=== PATIENT | male | born 1940 | race Caucasian/White ===

== ENCOUNTER 2019-12-09 23:11 | Inpatient (IN) ==
[2019-12-10 00:20] LABS: Basophils % 0.2 %; Hematocrit 33.6 % (37.5-50.1); Hemoglobin 11.6 g/dL (12.9-16.9); Immature Granulocytes % 0.5 % (0-4); Lymphocytes # 0.5 K/mcL (0.6-4.6); Lymphocytes % 8.7 %; Mean Corpuscular HGB Conc 34.5 g/dL (31.6-35.5); Mean Corpuscular Hemoglobin 31.1 pg (28.0-33.3); Mean Corpuscular Volume 90.1 fL (83.0-100.0); Mean Platelet Volume 10.2 fL (9.4-12.4); Monocytes # 0.3 K/mcL (0.0-1.3); Monocytes % 5.2 %; Neutrophils # 4.9 K/mcL (1.6-8.9); Platelet Count 143 K/mcL (140-400); Red Blood Count 3.73 M/mcL (4.19-5.50); Red Cell Distribution Width 11.9 % (11.5-14.5); Segmented Neutrophils % 85.4 %; White Blood Count 5.8 K/mcL (4.3-11.1)
[2019-12-10 00:39] LABS: BUN/Creatinine Ratio 23 (6-26); Blood Urea Nitrogen 19 mg/dL (8-23); Calcium 7.9 mg/dL (8.6-10.3); Carbon Dioxide 25 mEq/L (23-29); Chloride 103 mEq/L (98-107); Glucose 129 mg/dL (70-105); Osmolality,Calculated 286 (280-300); Potassium 3.4 mEq/L (3.5-5.1); Sodium 136 mEq/L (136-145); eGFR For African Americans > 60 (> 60); eGFR For Non-African Americans > 60 (> 60)
[2019-12-10 00:40] LABS: Troponin I 0.03 ng/mL (< 0.04)
[2019-12-10 01:22] LABS: Adenovirus Not Detected (Not Detect); Bordetella Pertussis Not Detected (Not Detect); Chlamydophila pneumoniae Not Detected (Not Detect); Coronavirus 229E Not Detected (Not Detect); Coronavirus HKU1 Not Detected (Not Detect); Coronavirus NL63 Not Detected (Not Detect); Coronavirus OC43 Not Detected (Not Detect); Human Metapneumovirus Not Detected (Not Detect); Human Rhinovirus/Enterovirus Not Detected (Not Detect); Influenza A Subtype 2009 H1 Not Detected (Not Detect); Influenza B Not Detected (Not Detect); Mycoplasma pneumoniae Not Detected (Not Detect); Parainfluenza Virus 1 Not Detected (Not Detect); Parainfluenza Virus 2 Not Detected (Not Detect); Parainfluenza Virus 3 Not Detected (Not Detect); Parainfluenza Virus 4 Not Detected (Not Detect); Respiratory Syncytial Virus Not Detected (Not Detect)
[2019-12-10 01:23] LABS: SARS-CoV-2 DETECTED (Not Detect)
[2019-12-10] MEDS ORDERED: Naloxone 0.4 MG/ML INJ IVP PRN (03:50)
[2019-12-10] MEDS ORDERED: *HR* Heparin 5,000 UNIT/ML VIAL SQ SCH (06:00)
[2019-12-10 06:25] LABS: Hematocrit 33.3 % (37.5-50.1); Hemoglobin 11.7 g/dL (12.9-16.9); Mean Corpuscular HGB Conc 35.1 g/dL (31.6-35.5); Mean Platelet Volume 10.1 fL (9.4-12.4); Platelet Count 143 K/mcL (140-400); Red Blood Count 3.66 M/mcL (4.19-5.50); Red Cell Distribution Width 11.9 % (11.5-14.5); White Blood Count 5.6 K/mcL (4.3-11.1)
[2019-12-10 06:39] LABS: Alanine Aminotransferase 13 Units/L (7-52); Albumin 3.2 g/dL (3.5-5.7); Albumin/Globulin Ratio 1.1 (1.1-2.2); Alkaline Phosphatase 46 Units/L (34-104); Aspartate Amino Transferase 31 Units/L (13-39); BUN/Creatinine Ratio 26 (6-26); Bilirubin,Total 0.7 mg/dL (0.3-1.0); Blood Urea Nitrogen 21 mg/dL (8-23); Calcium 8.2 mg/dL (8.6-10.3); Carbon Dioxide 27 mEq/L (23-29); Chloride 103 mEq/L (98-107); Glucose 120 mg/dL (70-105); Lactate Dehydrogenase 308 Units/L (140-271); Magnesium 1.7 mg/dL (1.6-2.6); Osmolality,Calculated 288 (280-300); Phosphorous 2.6 mg/dL (2.7-4.5); Potassium 3.3 mEq/L (3.5-5.1); Sodium 137 mEq/L (136-145); Total Protein 6.2 g/dL (6.4-8.9); eGFR For African Americans > 60 (> 60); eGFR For Non-African Americans > 60 (> 60)
[2019-12-10] MEDS: cefTRIAXone 1,000 MG in Water for inj. (sterile) 10 ML IVP SCH (08:50)
[2019-12-10] MEDS: Azithromycin 250 MG TABLET PO SCH (08:51)
[2019-12-10] MEDS: Furosemide 20 MG/2 ML VIAL IVP SCH (08:51)
[2019-12-10] MEDS ORDERED: Dexamethasone 4 MG/ML VIAL IVP SCH (09:00)
[2019-12-10] MEDS ORDERED: Ondansetron 4 MG/2 ML VIAL IVP PRN (10:30)
[2019-12-10] MEDS ORDERED: *HR* Enoxaparin 40 MG/0.4 ML SYRINGE SQ ONE (18:00)
[2019-12-10] MEDS: Dexamethasone 4 MG/ML VIAL IVP SCH (20:08)
[2019-12-10] MEDS: Acetaminophen 325 MG TABLET PO PRN (20:08)
[2019-12-10] MEDS ORDERED: 0.9 % Sodium Chloride 250 ML ONE (21:44)
[2019-12-11] MEDS: *HR* Enoxaparin 40 MG/0.4 ML SYRINGE SQ SCH (04:58)
[2019-12-11 06:35] LABS: INR 1.6; Prothrombin Time 18.5 Seconds (9.4-12.1)
[2019-12-11 06:45] LABS: BUN/Creatinine Ratio 30 (6-26); Blood Urea Nitrogen 27 mg/dL (8-23); Calcium 8.3 mg/dL (8.6-10.3); Carbon Dioxide 26 mEq/L (23-29); Chloride 100 mEq/L (98-107); Glucose 150 mg/dL (70-105); Lactate Dehydrogenase 326 Units/L (140-271); Magnesium 1.8 mg/dL (1.6-2.6); Osmolality,Calculated 290 (280-300); Potassium 3.5 mEq/L (3.5-5.1); Sodium 136 mEq/L (136-145); eGFR For African Americans > 60 (> 60); eGFR For Non-African Americans > 60 (> 60)
[2019-12-11 07:03] LABS: Ferritin 1233 ng/mL (20-250)
[2019-12-11 07:40] LABS: Hematocrit 36.2 % (37.5-50.1); Hemoglobin 12.3 g/dL (12.9-16.9); Mean Corpuscular Hemoglobin 30.8 pg (28.0-33.3); Mean Corpuscular Volume 90.7 fL (83.0-100.0); Mean Platelet Volume 10.3 fL (9.4-12.4); Platelet Count 190 K/mcL (140-400); Red Blood Count 3.99 M/mcL (4.19-5.50); Red Cell Distribution Width 11.9 % (11.5-14.5); White Blood Count 6.9 K/mcL (4.3-11.1)
[2019-12-11] MEDS: Furosemide 20 MG/2 ML VIAL IVP SCH (08:35)
[2019-12-11] MEDS: Dexamethasone 4 MG/ML VIAL IVP SCH ×2 (08:36→20:02)
[2019-12-11] MEDS: cefTRIAXone 1,000 MG in Water for inj. (sterile) 10 ML IVP SCH (08:37)
[2019-12-11] MEDS: Azithromycin 250 MG TABLET PO SCH (08:37)
[2019-12-11 09:35] LABS: C-Reactive Protein 137 mg/L (Less than 10)
[2019-12-11] MEDS ORDERED: *HR* Enoxaparin 40 MG/0.4 ML SYRINGE SQ SCH (18:00)
[2019-12-12] MEDS ORDERED: 0.9 % Sodium Chloride 250 ML ONE (01:07)
[2019-12-12] MEDS: *HR* Enoxaparin 40 MG/0.4 ML SYRINGE SQ SCH (05:13)
[2019-12-12] MEDS: Acetaminophen 325 MG TABLET PO PRN (05:24)
[2019-12-12] MEDS: Furosemide 20 MG/2 ML VIAL IVP SCH (09:28)
[2019-12-12] MEDS: cefTRIAXone 1,000 MG in Water for inj. (sterile) 10 ML IVP SCH (09:28)
[2019-12-12] MEDS: Azithromycin 250 MG TABLET PO SCH (09:29)
[2019-12-12] MEDS: Dexamethasone 4 MG/ML VIAL IVP SCH ×2 (09:29→21:58)
[2019-12-12 23:46] LABS: ABG Base Excess 7 mEq/L (-2 to 3); ABG HCO3 30 mEq/L (21-27); ABG Oxygen Saturation 93 % (95-98); ABG PCO2 37 mmHg (35-45); ABG PH 7.52 pH Units (7.32-7.45); ABG PO2 60 mmHg (85-104); ABG TCO2 31 mEq/L (20-26)
[2019-12-13] MEDS ORDERED: QUEtiapine Fumarate 25 MG TABLET PO ONE (03:00)
[2019-12-13] MEDS: Morphine Sulfate Oral CONC 10 MG/0.5 ML ORAL.SYG SL PRN (03:40)
[2019-12-13] MEDS ORDERED: Haloperidol Lactate 5 MG/ML VIAL IM ONE (03:52)
[2019-12-13] MEDS: *HR* Enoxaparin 40 MG/0.4 ML SYRINGE SQ SCH (04:04)
[2019-12-13] MEDS ORDERED: rOPINIRole 1 MG TABLET PO ONE (05:37)
[2019-12-13 05:48] LABS: Hematocrit 33.1 % (37.5-50.1); Hemoglobin 11.2 g/dL (12.9-16.9); Mean Corpuscular HGB Conc 33.8 g/dL (31.6-35.5); Mean Corpuscular Hemoglobin 31.2 pg (28.0-33.3); Mean Corpuscular Volume 92.2 fL (83.0-100.0); Mean Platelet Volume 10.8 fL (9.4-12.4); Platelet Count 219 K/mcL (140-400); Red Blood Count 3.59 M/mcL (4.19-5.50); Red Cell Distribution Width 11.9 % (11.5-14.5); White Blood Count 9.9 K/mcL (4.3-11.1)
[2019-12-13 06:12] LABS: BUN/Creatinine Ratio 39 (6-26); Blood Urea Nitrogen 30 mg/dL (8-23); Calcium 8.2 mg/dL (8.6-10.3); Carbon Dioxide 28 mEq/L (23-29); Chloride 99 mEq/L (98-107); Glucose 131 mg/dL (70-105); Lactate Dehydrogenase 317 Units/L (140-271); Osmolality,Calculated 290 (280-300); Potassium 3.4 mEq/L (3.5-5.1); Sodium 136 mEq/L (136-145); eGFR For African Americans > 60 (> 60); eGFR For Non-African Americans > 60 (> 60)
[2019-12-13 06:25] LABS: Ferritin 1123 ng/mL (20-250)
[2019-12-13 06:43] LABS: INR 1.5; Prothrombin Time 17.1 Seconds (9.4-12.1)
[2019-12-13 07:46] LABS: C-Reactive Protein 44 mg/L (Less than 10)
[2019-12-13] MEDS: cefTRIAXone 1,000 MG in Water for inj. (sterile) 10 ML IVP SCH (08:23)
[2019-12-13] MEDS: Furosemide 20 MG/2 ML VIAL IVP SCH (08:24)
[2019-12-13] MEDS: Azithromycin 250 MG TABLET PO SCH (08:24)
[2019-12-13] MEDS: Dexamethasone 4 MG/ML VIAL IVP SCH ×2 (08:24→20:59)
[2019-12-13] MEDS ORDERED: Furosemide 40 MG/4 ML VIAL IVP ONE (09:28)
[2019-12-13] MEDS: Dexmedetomidine HCl 400 MCG/100 ML MLS IVC SCH (10:23)
[2019-12-14 04:25] LABS: Hematocrit 36.3 % (37.5-50.1); Hemoglobin 12.4 g/dL (12.9-16.9); Mean Corpuscular HGB Conc 34.2 g/dL (31.6-35.5); Mean Corpuscular Hemoglobin 30.9 pg (28.0-33.3); Mean Corpuscular Volume 90.5 fL (83.0-100.0); Mean Platelet Volume 9.7 fL (9.4-12.4); Platelet Count 232 K/mcL (140-400); Red Blood Count 4.01 M/mcL (4.19-5.50); Red Cell Distribution Width 11.8 % (11.5-14.5); White Blood Count 10.5 K/mcL (4.3-11.1)
[2019-12-14 04:48] LABS: BUN/Creatinine Ratio 43 (6-26); Blood Urea Nitrogen 33 mg/dL (8-23); Calcium 8.6 mg/dL (8.6-10.3); Carbon Dioxide 32 mEq/L (23-29); Chloride 96 mEq/L (98-107); Glucose 135 mg/dL (70-105); Magnesium 2.2 mg/dL (1.6-2.6); Osmolality,Calculated 293 (280-300); Potassium 3.4 mEq/L (3.5-5.1); Sodium 137 mEq/L (136-145); eGFR For African Americans > 60 (> 60); eGFR For Non-African Americans > 60 (> 60)
[2019-12-14] MEDS: *HR* Enoxaparin 40 MG/0.4 ML SYRINGE SQ SCH (06:00)
[2019-12-14] MEDS: Azithromycin 250 MG TABLET PO SCH (08:56)
[2019-12-14] MEDS: Furosemide 20 MG/2 ML VIAL IVP SCH (08:56)
[2019-12-14] MEDS: Dexamethasone 4 MG/ML VIAL IVP SCH ×2 (08:56→20:31)
[2019-12-14] MEDS: cefTRIAXone 1,000 MG in Water for inj. (sterile) 10 ML IVP SCH (08:56)
[2019-12-14] MEDS: Dexmedetomidine HCl 400 MCG/100 ML MLS IVC SCH (09:23)
[2019-12-14] MEDS ORDERED: 0.9 % Sodium Chloride 500 ML ONE (11:05)
[2019-12-14 21:58] LABS: ABG Base Excess 10 mEq/L (-2 to 3); ABG HCO3 33 mEq/L (21-27); ABG Oxygen Saturation 90 % (95-98); ABG PCO2 38 mmHg (35-45); ABG PH 7.55 pH Units (7.32-7.45); ABG PO2 50 mmHg (85-104); ABG TCO2 34 mEq/L (20-26)
[2019-12-14] MEDS: Ipratropium 1 PUFF INHALER IH SCH (23:40)
[2019-12-15] MEDS: Ipratropium 1 PUFF INHALER IH SCH ×6 (03:56→23:39)
[2019-12-15] MEDS: Dexmedetomidine HCl 400 MCG/100 ML MLS IVC SCH ×2 (04:17→23:15)
[2019-12-15] MEDS: *HR* Enoxaparin 40 MG/0.4 ML SYRINGE SQ SCH (05:50)
[2019-12-15] MEDS: Furosemide 20 MG/2 ML VIAL IVP SCH (08:21)
[2019-12-15] MEDS ORDERED: Dexamethasone 4 MG/ML VIAL IVP SCH (09:00)
[2019-12-15 09:08] LABS: Hematocrit 35.1 % (37.5-50.1); Hemoglobin 12.1 g/dL (12.9-16.9); Immature Granulocytes % 0.6 % (0-4); Lymphocytes # 0.3 K/mcL (0.6-4.6); Lymphocytes % 2.3 %; Mean Corpuscular HGB Conc 34.5 g/dL (31.6-35.5); Mean Corpuscular Hemoglobin 31.1 pg (28.0-33.3); Mean Corpuscular Volume 90.2 fL (83.0-100.0); Monocytes # 0.3 K/mcL (0.0-1.3); Monocytes % 2.7 %; Neutrophils # 10.3 K/mcL (1.6-8.9); Platelet Count 241 K/mcL (140-400); Red Blood Count 3.89 M/mcL (4.19-5.50); Red Cell Distribution Width 11.9 % (11.5-14.5); Segmented Neutrophils % 94.4 %; White Blood Count 10.9 K/mcL (4.3-11.1)
[2019-12-15 09:26] LABS: BUN/Creatinine Ratio 44 (6-26); Blood Urea Nitrogen 34 mg/dL (8-23); Calcium 8.8 mg/dL (8.6-10.3); Carbon Dioxide 32 mEq/L (23-29); Chloride 99 mEq/L (98-107); Glucose 139 mg/dL (70-105); Osmolality,Calculated 296 (280-300); Potassium 3.5 mEq/L (3.5-5.1); Sodium 138 mEq/L (136-145); eGFR For African Americans > 60 (> 60); eGFR For Non-African Americans > 60 (> 60)
[2019-12-15] MEDS ORDERED: Potassium Chloride 20 MEQ, Lidocaine 1% 2 ML in 0.9 % Sodium Chloride 250 ML IVPB ONE (10:30)
[2019-12-15] MEDS ORDERED: Vancomycin 1,250 MG/262.5 ML IV.SOLN IVPB ONE (11:22)
[2019-12-15] MEDS: Cefepime HCl 2,000 MG in Water for inj. (sterile) 20 ML IVP SCH ×2 (11:40→18:22)
[2019-12-15] MEDS: Furosemide 40 MG/4 ML VIAL IVP SCH (19:51)
[2019-12-16] MEDS: Ipratropium 1 PUFF INHALER IH SCH ×5 (03:41→20:20)
[2019-12-16] MEDS: Cefepime HCl 2,000 MG in Water for inj. (sterile) 20 ML IVP SCH ×3 (03:45→18:24)
[2019-12-16] MEDS: *HR* Enoxaparin 40 MG/0.4 ML SYRINGE SQ SCH (05:20)
[2019-12-16 06:22] LABS: Hematocrit 35.8 % (37.5-50.1); Hemoglobin 12.5 g/dL (12.9-16.9); Mean Corpuscular HGB Conc 34.9 g/dL (31.6-35.5); Mean Corpuscular Hemoglobin 32.1 pg (28.0-33.3); Mean Corpuscular Volume 91.8 fL (83.0-100.0); Mean Platelet Volume 10.4 fL (9.4-12.4); Platelet Count 251 K/mcL (140-400); White Blood Count 12.1 K/mcL (4.3-11.1)
[2019-12-16 07:01] LABS: BUN/Creatinine Ratio 57 (6-26); Blood Urea Nitrogen 44 mg/dL (8-23); Calcium 8.9 mg/dL (8.6-10.3); Carbon Dioxide 29 mEq/L (23-29); Chloride 102 mEq/L (98-107); Glucose 144 mg/dL (70-105); Osmolality,Calculated 306 (280-300); Potassium 3.5 mEq/L (3.5-5.1); Sodium 141 mEq/L (136-145); eGFR For African Americans > 60 (> 60); eGFR For Non-African Americans > 60 (> 60)
[2019-12-16] MEDS: Furosemide 40 MG/4 ML VIAL IVP SCH ×2 (09:49→19:42)
[2019-12-16] MEDS ORDERED: Acetaminophen IV 1,000 MG/100 ML INFUS..BTL IVPB ONE (10:53)
[2019-12-16] MEDS: Dexmedetomidine HCl 400 MCG/100 ML MLS IVC SCH (13:53)
[2019-12-17] MEDS: Ipratropium 1 PUFF INHALER IH SCH ×6 (00:26→20:09)
[2019-12-17] MEDS: Dexmedetomidine HCl 400 MCG/100 ML MLS IVC SCH ×2 (02:00→20:28)
[2019-12-17] MEDS: Cefepime HCl 2,000 MG in Water for inj. (sterile) 20 ML IVP SCH ×3 (03:21→18:05)
[2019-12-17] MEDS: *HR* Enoxaparin 40 MG/0.4 ML SYRINGE SQ SCH (04:47)
[2019-12-17 06:07] LABS: Hematocrit 37.8 % (37.5-50.1); Hemoglobin 12.9 g/dL (12.9-16.9); Mean Corpuscular HGB Conc 34.1 g/dL (31.6-35.5); Mean Corpuscular Hemoglobin 31.6 pg (28.0-33.3); Mean Corpuscular Volume 92.6 fL (83.0-100.0); Mean Platelet Volume 10.2 fL (9.4-12.4); Platelet Count 265 K/mcL (140-400); Red Blood Count 4.08 M/mcL (4.19-5.50); Red Cell Distribution Width 12.3 % (11.5-14.5); White Blood Count 15.1 K/mcL (4.3-11.1)
[2019-12-17 06:28] LABS: BUN/Creatinine Ratio 55 (6-26); Blood Urea Nitrogen 64 mg/dL (8-23); Calcium 8.7 mg/dL (8.6-10.3); Carbon Dioxide 29 mEq/L (23-29); Chloride 104 mEq/L (98-107); Glucose 163 mg/dL (70-105); Osmolality,Calculated 322 (280-300); Potassium 3.3 mEq/L (3.5-5.1); Sodium 145 mEq/L (136-145); eGFR For African Americans > 60 (> 60); eGFR For Non-African Americans > 60 (> 60)
[2019-12-17] MEDS ORDERED: Potassium Chloride 40 MEQ, Lidocaine 1% 2 ML in 0.9 % Sodium Chloride 500 ML IVPB ONE (08:12)
[2019-12-17] MEDS: Acetaminophen 325 MG TABLET PO PRN (20:26)
[2019-12-18] MEDS: Ipratropium 1 PUFF INHALER IH SCH ×7 (00:20→23:47)
[2019-12-18] MEDS: Cefepime HCl 2,000 MG in Water for inj. (sterile) 20 ML IVP SCH ×2 (02:03→12:00)
[2019-12-18] MEDS: *HR* Enoxaparin 40 MG/0.4 ML SYRINGE SQ SCH (05:09)
[2019-12-18 06:36] LABS: Hemoglobin 12.6 g/dL (12.9-16.9); Mean Corpuscular HGB Conc 32.3 g/dL (31.6-35.5); Mean Corpuscular Hemoglobin 30.8 pg (28.0-33.3); Mean Corpuscular Volume 95.4 fL (83.0-100.0); Mean Platelet Volume 10.5 fL (9.4-12.4); Platelet Count 229 K/mcL (140-400); Red Blood Count 4.09 M/mcL (4.19-5.50); Red Cell Distribution Width 12.5 % (11.5-14.5); White Blood Count 14.8 K/mcL (4.3-11.1)
[2019-12-18 06:56] LABS: Calcium 8.5 mg/dL (8.6-10.3); Potassium 3.8 mEq/L (3.5-5.1)
[2019-12-18] MEDS: D5% in Water 500 ML IVC SCH ×2 (08:04→18:12)
[2019-12-18] MEDS: Dexmedetomidine HCl 400 MCG/100 ML MLS IVC SCH (11:57)
[2019-12-18 19:08] LABS: Calcium 8.3 mg/dL (8.6-10.3); Potassium 3.8 mEq/L (3.5-5.1)
[2019-12-18] MEDS ORDERED: Water for inj. (sterile) 10 ML ONE (20:09)
[2019-12-18] MEDS: Morphine Sulfate Oral CONC 10 MG/0.5 ML ORAL.SYG SL PRN (21:04)
[2019-12-19] MEDS: Cefepime HCl 2,000 MG in Water for inj. (sterile) 20 ML IVP SCH ×3 (00:09→23:12)
[2019-12-19] MEDS: Ipratropium 1 PUFF INHALER IH SCH ×6 (03:37→23:34)
[2019-12-19] MEDS: D5% in Water 500 ML IVC SCH ×2 (04:35→21:54)
[2019-12-19] MEDS: *HR* Enoxaparin 40 MG/0.4 ML SYRINGE SQ SCH (04:36)
[2019-12-19 07:37] LABS: Hematocrit 36.6 % (37.5-50.1); Hemoglobin 12.1 g/dL (12.9-16.9); Mean Corpuscular HGB Conc 33.1 g/dL (31.6-35.5); Mean Corpuscular Hemoglobin 31.1 pg (28.0-33.3); Mean Corpuscular Volume 94.1 fL (83.0-100.0); Mean Platelet Volume 10.7 fL (9.4-12.4); Platelet Count 177 K/mcL (140-400); Red Blood Count 3.89 M/mcL (4.19-5.50); Red Cell Distribution Width 12.9 % (11.5-14.5); White Blood Count 19.1 K/mcL (4.3-11.1)
[2019-12-19 07:59] LABS: Calcium 8.3 mg/dL (8.6-10.3); Magnesium 2.8 mg/dL (1.6-2.6); Potassium 3.4 mEq/L (3.5-5.1)
[2019-12-19] MEDS: Morphine Sulfate Oral CONC 10 MG/0.5 ML ORAL.SYG SL PRN (20:11)
[2019-12-20] MEDS: Morphine Sulfate Oral CONC 10 MG/0.5 ML ORAL.SYG SL PRN ×3 (01:56→12:37)
[2019-12-20] MEDS: Ipratropium 1 PUFF INHALER IH SCH ×4 (03:26→15:45)
[2019-12-20] MEDS: *HR* Enoxaparin 40 MG/0.4 ML SYRINGE SQ SCH (04:06)
[2019-12-20] MEDS: D5% in Water 500 ML IVC SCH ×3 (12:10→12:37)
[2019-12-20] MEDS: Dexmedetomidine HCl 400 MCG/100 ML MLS IVC SCH (12:12)
[2019-12-20] MEDS: Cefepime HCl 2,000 MG in Water for inj. (sterile) 20 ML IVP SCH (12:14)
[2019-12-20] MEDS ORDERED: Morphine Sulfate Oral CONC 10 MG/0.5 ML ORAL.SYG SL PRN (12:36)
[2019-12-20 12:52] VITALS: BP 98/64
== END 2019-12-20 18:00 | disposition hospice, home (50) | DRG 177 ==
LOC: 2NENU 23:11 → EMEROOARM 23:11 → 2NENU 12-10 02:38 → SUATTDRO 12-10 14:22 → 2NENU 12-14 23:10
PROVIDERS: ADMIT Family Medicine; ATTEND Internal Medicine